=== PATIENT | female | born 1970 | race Two or more races ===

== ENCOUNTER 2022-09-19 23:33 | Emergency (ER) | payer BC, OTHER ==
[~2022-09-19] VITALS: Ht 170.2 cm; Wt 65.9 kg
[2022-09-19 23:36] VITALS: BP 153/87
== END 2022-09-20 01:41 | disposition home or self-care (01) ==
LOC: ER 23:34
DX: S01.01XA Laceration without foreign body of scalp, initial encounter (principal); Z90.49 Acquired absence of other specified parts of digestive tract; W19.XXXA Unspecified fall, initial encounter; Y93.89 Activity, other specified; Y92.89 Other specified places as the place of occurrence of the external cause; Y99.8 Other external cause status
CPT/HCPCS: 12002; 36415; 70450; 70486; 72125; 80320